=== PATIENT | male | born 1975 | race African-American/Black ===

== ENCOUNTER 2017-02-06 16:53 | Emergency (ER) | payer BC, MEDICAID ==
[2017-02-06] MEDS ORDERED: HYDROmorphone 1 MG/ML Syringe IVPUSH ONE (17:28)
[2017-02-06] MEDS ORDERED: Sodium Chloride 0.9% 1,000 ML IV ONE (17:28)
[2017-02-06] MEDS ORDERED: Sodium Chloride 0.9% 10 ML Syringe FLUSH PRN ×2 (17:28→18:56)
[2017-02-06] MEDS ORDERED: Ondansetron 4 MG/2 ML SDV IVPUSH ONE (17:28)
--- NOTE | 2017-02-06 17:39 | EDM.PDOC ---
ED HPI GI/ABDOMINAL - General Chief Complaint: Abdominal Pain Stated Complaint: ABDOMINAL PAIN Time Seen by Provider: 02/06/17 17:23 Source of Information: Reports: Patient History Limitations: Reports: No limitations - History of Present Illness INITIAL COMMENTS - FREE TEXT/NARRATIVE: Patient presents for evaluation and treatment of abdominal pain. For that the abdominal pain began suddenly around 10 AM this morning. It is located in the epigastric and right upper quadrant. He states it is severe in nature. He states that it has been coming and going but is currently constant pain. He rates as a 10 out of 10 and describes it as a sharp, stabbing sensation. He states that the pain takes his breath away. He states that he has not had anything to eat but has been drinking water. He reports associated symptoms of chills, nausea, vomiting and diarrhea. He denies any fevers. He reports he has had at least 10 episodes of vomiting today. He reports that he's had at least 3 episodes of diarrhea today. He denies any blood in his stool. He denies any urinary symptoms. Patient has not had any surgeries to his abdomen. Location: RUQ Quality: Reports: stabbing Severity: severe Associated Symptoms: Denies: chest pain, back pain - Related Data Allergies/ADRs: Allergies Allergy/AdvReac Type Severity Reaction Status Date / Time No Known Allergies Allergy Verified 02/06/17 17:04 Home Meds: Home Meds Acetaminophen/oxyCODONE [Percocet 325-5 MG] 1 tab PO Q6H PRN #12 tablet [Rx] Past Medical History - Past Health History Medical/Surgical History: Denies Medical/Surgical History Social & Family History - Tobacco Use Smoking Status *Q: Current Every Day Smoker Years of Tobacco use: 30 Packs/Tins Daily: 1 - Caffeine Use Caffeine Use: Reports: Soda, Tea - Recreational Drug Use Recreational Drug Type: Reports: Marijuana/Hashish ED ROS GENERAL - Review of Systems Review Of Systems: See Below Constitutional: Reports: chills Cardiovascular: Denies: Chest pain GI/Abdominal: Reports: Abdominal pain (epigstric and RUQ), Diarrhea, Decreased appetite, Nausea, Vomiting. Denies: Bloody stool, Hematochezia, Melena : Reports: no symptoms Musculoskeletal: Denies: back pain ED EXAM, GI/ABD - Physical Exam Exam: See Below Exam Limited By: No limitations General Appearance: alert, WD/WN, moderate distress Throat/Mouth: Normal inspection, Normal lips, Normal voice, No airway compromise Respiratory/Chest: no respiratory distress, lungs clear, normal breath sounds Cardiovascular: normal peripheral pulses, regular rate, rhythm GI/Abdominal: normal bowel sounds, soft, tenderness (epigastric and RUQ), guarding. No: rebound, McBurney's sign Neurological: alert, oriented, normal cognition Psychiatric: normal affect, normal mood Skin Exam: Warm, Normal color, Diaphoretic Course - Vital Signs Last Recorded V/S: Last Vital Signs Temp 36.8 C 02/06/17 17:04 Pulse 69 02/06/17 21:25 Resp 18 02/06/17 21:25 BP 151/82 H 02/06/17 21:25 Pulse Ox 96 02/06/17 21:25 - Orders/Labs/Meds Labs: Laboratory Tests 02/06/17 02/06/17 02/06/17 Range/Units 17:15 17:15 19:30 WBC 17.33 H (4.23-9.07) K/mm3 RBC 5.83 (4.63-6.08) M/mm3 Hgb 16.1 (13.7-17.5) gm/L Hct 47.0 (40.1-51.0) % MCV 80.6 (79.0-92.2) fl MCH 27.6 (25.7-32.2) pg MCHC 34.3 (32.2-35.5) g/dl RDW Std Deviation 44.6 H (35.1-43.9) fL Plt Count 425 H (163-337) K/mm3 MPV 9.7 (9.4-12.3) fl Neutrophils % (Manual) 85 H (40-60) % Band Neutrophils % 0 (0-10) % Lymphocytes % (Manual) 12 L (20-40) % Atypical Lymphs % 0 % Monocytes % (Manual) 3 (2-10) % Eosinophils % (Manual) 0 L (0.8-7.0) % Basophils % (Manual) 0 L (0.2-1.2) Platelet Estimate Adequate RBC Morph Comment Normal Sodium 139 (136-145) mEq/L Potassium 4.2 (3.5-5.1) mEq/L Chloride 102 (98-107) mEq/L Carbon Dioxide 23 (21-32) mEq/L Anion Gap 18.2 H (5-15) BUN 12 (7-18) mg/dL Creatinine 1.2 (0.7-1.3) mg/dL Est Cr Clr Drug Dosing 78.38 mL/min Estimated GFR (MDRD) > 60 (>60) mL/min BUN/Creatinine Ratio 10.0 L (14-18) Glucose 118 H (74-106) mg/dL Calcium 9.7 (8.5-10.1) mg/dL Total Bilirubin 0.7 (0.2-1.0) mg/dL AST 31 (15-37) U/L ALT 51 (16-63) U/L Alkaline Phosphatase 96 (46-116) U/L C-Reactive Protein 0.6 (<1.0) mg/dL Total Protein 8.5 H (6.4-8.2) g/dl Albumin 4.6 (3.4-5.0) g/dl Globulin 3.9 gm/dL Albumin/Globulin Ratio 1.2 (1-2) Lipase 76 (73-393) U/L Urine Color Yellow (Yellow) Urine Appearance Clear (Clear) Urine pH 7.0 (5.0-8.0) Ur Specific [place] 1.020 (1.005-1.030) Urine Protein 1+ H (Negative) Urine Glucose (UA) Negative (Negative) Urine Ketones 1+ H (Negative) Urine Occult Blood Negative (Negative) Urine Nitrite Negative (Negative) Urine Bilirubin Negative (Negative) Urine Urobilinogen 1.0 (0.2-1.0) Ur Leukocyte Esterase Trace H (Negative) Urine RBC 0-5 (0-5) /hpf Urine WBC 10-20 H (0-5) /hpf Ur Epithelial Cells 0-5 (0-5) /hpf Urine Bacteria Few (FEW) /hpf Urine Mucus Moderate H (FEW) /hpf Meds: Medications Discontinued Medications Generic Name Dose Route Start Last Admin Trade Name Freq PRN Reason Stop Dose Admin Diatrizoate Meglum/Diatrizoate Sod 90 ml 02/06/17 18:56 02/06/17 19:17 Gastrografin 37% PO 02/06/17 18:57 90 ml ONETIME ONE Administration Hydromorphone HCl 1 mg 02/06/17 17:28 02/06/17 17:36 Dilaudid IVPUSH 02/06/17 17:29 1 mg ONETIME ONE Administration Sodium Chloride 1,000 mls @ 999 mls/hr 02/06/17 17:28 02/06/17 17:33 Normal Saline IV 02/06/17 18:28 999 mls/hr ONETIME ONE Administration Iopamidol 125 ml 02/06/17 18:56 02/06/17 19:17 Isovue-300 (61%) IVPUSH 02/06/17 18:57 125 ml ONETIME ONE Administration Ondansetron HCl 4 mg 02/06/17 17:28 02/06/17 17:34 Zofran IVPUSH 02/06/17 17:29 4 mg ONETIME ONE Administration Sodium Chloride 10 ml 02/06/17 17:28 02/06/17 17:37 Saline Flush FLUSH 10 ml ASDIRECTED PRN Administration Keep Vein Open Sodium Chloride 10 ml 02/06/17 18:56 02/06/17 19:17 Saline Flush FLUSH 10 ml ONETIME PRN Administration IV FLUSH - Radiology Interpretation Free Text/Narrative:: Ct of the abdomen and pelvis impression per Dr. Schwartz: 1. Incidental findings. Nothing acute is seen on CT study of the abdomen and pelvis. CT Results Date: 02/06/17 - Re-Assessments/Exams Free Text/Narrative Re-Assessment/Exam: 02/06/17 20:23 Patient is feeling greatly improved and would like to eat at this time. 02/06/17 21:03 I reviewed the lab and the CT results with the patient. I believe the white blood cell count of 17.33 likely from a stress response. he was given IV Dilaudid, Zofran and fluids. I feel that this is likely biliary colic. I will have him follow up outpatient for an ultrasound and possibly a HIDA scan of his gallbladder. I prescribed some Percocets should he develop similar pain. He is instructed to return to the ER if symptoms change or worsen. Departure - Departure Time of Disposition: 21:01 Disposition: Home, Self-Care 01 Condition: fair Clinical Impression: Abdominal pain, right upper quadrant Prescriptions: Acetaminophen/oxyCODONE [Percocet 325-5 MG] 1 tab PO Q6H PRN #12 tablet PRN Reason: Pain Instructions: Abdominal Pain, Adult, [id number] Referrals: PCP,None [Primary Care Provider] - Neal Sherman PA-C [Physician Registered Nurse [facility]] - Forms: ED Department Discharge Additional Instructions: You were given medication in the ER that can affect your ability to drive and operate machinery. No driving or operating machinery within 12 hours of taking prescription narcotic pain medication. Percocet 1-2 tabs every 4-6 hours as needed for severe pain. Percocet can be habit-forming, I recommend you take as few of these as needed to control your pain. Do not drive or operate machinery within 12 hours of taking Percocet. Avoid fatty foods. Follow-up with Neal Sherman next week. If you are unable to see Neal I recommend Emma Lino or Leatha Leon. Call [phone] to schedule with any one of them. Please return to the ER should your symptoms change or worsen.
[2017-02-06] MEDS ORDERED: Iopamidol 612 MG/ML 150 ML Bottle IVPUSH ONE (18:56)
[2017-02-06] MEDS ORDERED: Diatrizoate Meglumine/Diatrizoate Sodium 37% 120 ML Bottle PO ONE (18:56)
--- NOTE | 2017-02-06 19:45 | CT ---
CT abdomen and pelvis Technique: Multiple axial sections were obtained from above the dome of the diaphragm inferiorly through the pubic symphysis. Intravenous and oral contrast was utilized. Delayed images were also obtained through the abdomen and pelvis. Comparison: No previous abdominal study. Findings: Visualized lung bases shows nothing acute. Liver shows no focal parenchymal abnormality. Small amount of contrast is noted within the distal esophagus presumably due to minimal reflux. Spleen appears normal. Adrenal glands show no nodule. Pancreas appears within normal limits. Kidneys show symmetric contrast enhancement. Small low density area noted within the mid left kidney believed to represent minimal cyst. Kidneys otherwise are unremarkable. Delayed images shows contrast within nondilated ureters as well as contrast seen within the bladder. Aorta shows no aneurysmal dilatation. No retroperitoneal adenopathy or mesenteric abnormalities are seen. Appendix is not visualized. No inflammatory change is seen within the abdomen or pelvis. Small fat-containing right inguinal hernia is incidentally noted. Bone window settings were reviewed which appear within normal limits for the patient's age. Impression: 1. Incidental findings. Nothing acute is seen on CT study of the abdomen and pelvis. Diagnostic code #2
[2017-02-06 21:31] VITALS: BP 151/82
== END 2017-02-06 21:25 | disposition home or self-care (01) ==
LOC: JD.ED 16:53
DX: R10.11 Right upper quadrant pain (principal); R10.13 Epigastric pain; F17.210 Nicotine dependence, cigarettes, uncomplicated
CPT/HCPCS: 36415; 74177; 80053; 81001; 83690; 85025; 86140; 96361; 96374; 96375; 99284; J1170; J2405; J7040; J7050; Q9963; Q9967